=== PATIENT | female | born 1955 | race Caucasian/White ===

== ENCOUNTER 2020-08-21 13:41 | Emergency (ER) | payer MEDICARE, OTHER ==
[~2020-08-21 13:41] MED LIST: ANTIVERT25 MG PO; ASPIRIN CHEWABL81 MG PO; ASPIRIN EC81 MG PO; ATARAX25 MG PO; COLESTIPOL HCL1 GM PO; COMPLETE MULTI1 EAC2 PO; DITROPAN XL10 MG PO; HYDROCODON-ACE1 EAC4 PO; MAG-OXIDE 400M400 MG PO; MEDROL 4MG DOSEP4 MG PO; MOBIC7.5 MG PO; NORCO 5-325 TA1 EACH PO; PEPCID AC20 MG PO; PERCOCET 5-3251 EACH PO; PRILOSEC20 MG PO; PROTONIX 40MG T40 MG PO; TOPAMAX50 MG PO; TRAMADOL HCL50 MG PO; ULTRAM50 MG PO; VOLTAREN **OUT75 MG PO; XARELTO10 MG PO; ZANTAC150 MG PO; ZOLOFT100 MG PO
[2020-08-21 15:07] LABS: BASOPHIL 0.3 % (0-2); EOSINOPHIL 1.4 % (0-7); HCT 46.4 % (37.0-47.0); HGB 15.4 g/dl (12.5-16.0); LYMPHOCYTE 14.9 % (15-48); MCH 28.5 pg (25.0-31.0); MCHC 33.2 g/dL (32.0-36.0); MCV 85.8 fL (78.0-100.0); MONOCYTE 4.9 % (0-12); MPV 10.3 fL (6.0-9.5); NEUTROPHIL 77.8 % (41-80); NRBC 0; PLT 246 K/uL (150-400); RBC 5.41 M/uL (4.20-5.40); RDW 13.5 % (11.5-14.0); WBC 11.7 K/uL (4.0-10.5)
[2020-08-21 15:31] LABS: BUN/CREAT RATIO (CALC) 16.5 RATIO; CREATININE 0.85 mg/dL (0.51-0.95); POTASSIUM 3.6 mmol/L (3.5-5.1)
== END 2020-08-21 16:40 | disposition other institution (70) ==
LOC: FER 13:41
PROVIDERS: Emergency Medicine
DX: S42.402A Unspecified fracture of lower end of left humerus, initial encounter for closed fracture (principal); Z88.0 Allergy status to penicillin; W18.40XA Slipping, tripping and stumbling without falling, unspecified, initial encounter; Y92.410 Unspecified street and highway as the place of occurrence of the external cause
CPT/HCPCS: 36415; 73060; 73080; 80048; 85025; 96374; 96375; J2270; J2405; J7030